=== PATIENT | female | born 1975 | race American Indian/Alaskan Native ===

== ENCOUNTER 2020-08-01 11:56 | Emergency (ER) | payer SELFPAY ==
[2020-08-01 12:19] VITALS: BP 119/71
--- NOTE | 2020-08-01 12:32 | Emergency Department Report ---
ED General Adult HPI - General Chief complaint: Urogenital-Female Stated complaint: THICK DISCHARGE/VAGINAL DISCOMFORT Source: patient Mode of arrival: Ambulatory Limitations: No Limitations - History of Present Illness Initial comments: This is a pleasant 45-year-old female presents the emergency department the chief complaint of a thick cottage cheeselike discharge that she has had for the past few months with associated burning during sexual intercourse. She also reports she has not had a menstrual cycle in 2 months and has some burning when she urinates. She also reports she has had some facial pressure, nasal congestion, postnasal drip and nonproductive cough. She denies any associated fever, chills, night sweats, headache, dizziness, blurry vision, nausea,, daniel rrhea, chest pain or shortness of breath or any other associated symptoms. She denies any concern for exposure to STDs and declines work-up for this. - Related Data Previous Rx's Medication Instructions Recorded Last Taken Type Fluconazole (Nf) [Diflucan TAB] 150 mg PO ONCE #1 tablet 08/01/20 Unknown Rx Fluticasone [Flonase] 1 spray NS QDAY #1 bottle 08/01/20 Unknown Rx Nitrofurantoin [place]/M-Cryst 100 mg PO Q12HR #14 capsule 08/01/20 Unknown Rx [Macrobid CAP] Allergies Allergy/AdvReac Type Severity Reaction Status Date / Time No Known Allergies Allergy Unverified 08/01/20 12:16 ED Review of Systems ROS: Stated complaint: THICK DISCHARGE/VAGINAL DISCOMFORT Other details as noted in HPI Comment: All other systems reviewed and negative Constitutional: denies: chills, fever Eyes: denies: eye pain, eye discharge, vision change ENT: congestion. denies: ear pain, throat pain Respiratory: see HPI, cough. denies: shortness of breath, wheezing Cardiovascular: denies: chest pain, palpitations Endocrine: no symptoms reported Gastrointestinal: denies: abdominal pain, nausea, diarrhea Genitourinary: as per HPI, discharge. denies: urgency, dysuria Musculoskeletal: denies: back pain, joint swelling, arthralgia Skin: denies: rash, lesions Neurological: denies: headache, weakness, paresthesias Psychiatric: denies: anxiety, depression Hematological/Lymphatic: denies: easy bleeding, easy bruising ED Past Medical Hx - Past Medical History Previous Medical History?: No - Surgical History Additional Surgical History: CSECTION - Social History Smoking Status: Never Smoker Substance Use Type: Alcohol - Medications Home Medications: Home Medications Medication Instructions Recorded Confirmed Last Taken Type Fluconazole (Nf) [Diflucan TAB] 150 mg PO ONCE #1 tablet 08/01/20 Unknown Rx Fluticasone [Flonase] 1 spray NS QDAY #1 bottle 08/01/20 Unknown Rx Nitrofurantoin [place]/M-Cryst 100 mg PO Q12HR #14 capsule 08/01/20 Unknown Rx [Macrobid CAP] ED Physical Exam - General Limitations: No Limitations General appearance: alert, in no apparent distress - Head Head exam: Present: atraumatic, normocephalic - Eye Eye exam: Present: normal appearance, PERRL, EOMI Pupils: Present: normal accommodation - ENT ENT exam: Present: normal exam, normal orophraynx, mucous membranes moist, other (Hyperemia to the nasal turbinates, postnasal drip) - Neck Neck exam: Present: normal inspection, full ROM. Absent: tenderness, meningismus - Respiratory Respiratory exam: Present: normal lung sounds bilaterally. Absent: respiratory distress, wheezes, rales, rhonchi, stridor, chest wall tenderness - Cardiovascular Cardiovascular Exam: Present: regular rate, normal rhythm, normal heart sounds. Absent: systolic murmur, diastolic murmur, rubs, gallop - GI/Abdominal GI/Abdominal exam: Present: soft, normal bowel sounds. Absent: distended, tenderness, guarding, rebound, rigid - Extremities Exam Extremities exam: Present: normal inspection, full ROM, normal capillary refill. Absent: tenderness, calf tenderness - Back Exam Back exam: Present: normal inspection, full ROM. Absent: tenderness, CVA tenderness (R), CVA tenderness (L) - Neurological Exam Neurological exam: Present: alert, oriented X3, normal gait - Psychiatric Psychiatric exam: Present: normal affect, normal mood - Skin Skin exam: Present: warm, dry, intact, normal color. Absent: rash ED Course Vital Signs 08/01/20 12:18 Temperature 98.7 F Pulse Rate 108 H Respiratory 19 Rate Blood Pressure 119/71 O2 Sat by Pulse 99 Oximetry - Reevaluation(s) Reevaluation #1: 08/01/20 12:31 Patient nontoxic in no acute distress. The discharge she is describing is very consistent with yeast. I will check a urinalysis and urine test. She is not concerned about any STD exposure and did not want work-up for this. She understood that I cannot completely rule out PID or TOA without this work-up and understood the risk of leaving without this. Critical care attestation.: If time is entered above; I have spent that time in minutes in the direct care of this critically ill patient, excluding procedure time. ED Disposition Clinical Impression: Post-nasal drip Vaginitis Qualifiers: Chronicity: acute Qualified Code(s): N76.0 - Acute vaginitis Acute cystitis Qualifiers: Hematuria presence: with hematuria Qualified Code(s): N30.01 - Acute cystitis with hematuria Disposition: TO HOME OR SELFCARE Is pt being admited?: No Condition: Stable Instructions: Urinary Tract Infection, Adult, Vaginitis, Efuj-nd-Knil Prescriptions: Fluconazole (Nf) [Diflucan TAB] 150 mg PO ONCE #1 tablet Fluticasone [Flonase] 1 spray NS QDAY #1 bottle Nitrofurantoin [place]/M-Cryst [Macrobid CAP] 100 mg PO Q12HR #14 capsule Referrals: [facility] [Provider Group] - 3-5 Days Time of Disposition: 13:25
[2020-08-01 13:06] LABS: HCG Qualitative,Urine Negative (Negative)
[2020-08-01 13:09] LABS: Bilirubin,Urine NEG (Negative); Blood,Urine NEG (Negative); Color,Urine Yellow (Yellow); Mucus,Urine 3+ /HPF; Protein,Urine <15 mg/dL mg/dL (Negative)
== END 2020-08-01 14:51 | disposition home or self-care (01) ==
LOC: ED 11:56
DX: R09.82 Postnasal drip (principal); N76.0 Acute vaginitis; N30.00 Acute cystitis without hematuria; Z79.899 Other long term (current) drug therapy
CPT/HCPCS: 81001; 81025; 87086; 99283

== ENCOUNTER 2020-08-30 12:21 | Emergency (ER) | payer SELFPAY ==
[2020-08-30 12:30] VITALS: BP 120/83
[2020-08-30] MEDS ORDERED: LIDOCAINE (2%) 20 MG/1 ML VIAL 20 ML MDV INFILTRATI ONE (12:37)
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
== END 2020-08-30 13:59 | disposition home or self-care (01) ==
LOC: ED 12:21
DX: S01.511A Laceration without foreign body of lip, initial encounter (principal); N89.8 Other specified noninflammatory disorders of vagina; F12.10 Cannabis abuse, uncomplicated; Y04.2XXA Assault by strike against or bumped into by another person, initial encounter; Y93.89 Activity, other specified; Y92.89 Other specified places as the place of occurrence of the external cause; Y99.8 Other external cause status
CPT/HCPCS: 99282